=== PATIENT | female | born 1945 | race Caucasian/White ===

== ENCOUNTER 2017-03-08 15:38 | Emergency (ER) | payer OTHER ==
[2017-03-08 16:12] VITALS: BP 136/80; PULSE 86; TEMP 98.5; BMI 21.0
--- NOTE | 2017-03-08 16:55 | PDOC ---
History of Present Illness - General Chief Complaint: Edema Stated Complaint: PAIN Time Seen by Provider: 03/08/17 16:38 History Source: Patient Exam Limitations: No Limitations - History of Present Illness Initial Comments: 03/08/17 16:[address] scan post infiltration of IV site post injection of contrast dye Past History - Past Medical History Allergies/Adverse Reactions: Allergies Allergy/AdvReac Type Severity Reaction Status Date / Time No Known Allergies Allergy Verified 03/08/17 16:05 Other medical history: "memory" problem, "stomach" problem - Psycho/Social/Smoking Cessation Hx Suicidal Ideation: No Smoking History: Never smoked Review of Systems - Review of Systems Constitutional: No: Chills, Fever HEENTM: No: Symptoms Reported Respiratory: No: Symptoms reported Integumentary: Yes: Erythema *Physical Exam - Vital Signs Last Vital Signs Temp Pulse Resp BP Pulse Ox 98.5 F 86 18 136/80 98 03/08/17 16:05 03/08/17 16:05 03/08/17 16:05 03/08/17 16:05 03/08/17 16:05 - Physical Exam General Appearance: Yes: Appropriately Dressed, Apparent Distress HEENT: negative: TMs Normal, Pharynx Normal Respiratory/Chest: positive: Lungs Clear Integumentary: positive: Other (mild STS to area about IV site with slight redness) Medical Decision Making - Medical Decision Making 03/08/17 16:52 Pt on Multiple AbX for peptic ulers; will suggest warm soaks to area; return to ED 2 days for wound check *DC/Admit/Observation/Transfer Diagnosis at time of Disposition: IV infiltration Qualifiers: Encounter type: initial encounter Qualified Code(s): T80.1XXA - Vascular complications following infusion, transfusion and therapeutic injection, initial encounter - Discharge Dispostion Disposition: HOME Condition at time of disposition: Stable Admit: No - Patient Instructions Additional Instructions: please return 2 days for increased redness; return tomorrow for fever, increased redness or streaking, increased swelling to area
== END 2017-03-08 16:58 | disposition home or self-care (01) ==
LOC: JERFT 15:38
DX: T80.1XXA Vascular complications following infusion, transfusion and therapeutic injection, initial encounter (principal); X58.XXXA Exposure to other specified factors, initial encounter; Y93.89 Activity, other specified
CPT/HCPCS: 74020-TC; 74177-TC; 99281-25; C1887; Q9967